=== PATIENT | female | born 1970 | race Caucasian/White ===

== ENCOUNTER 2017-02-17 11:39 | Outpatient (CLI) | payer BC, OTHER ==
[2017-02-17] MEDS ORDERED: IOPAMIDOL-300 50 ML VIAL PO ONE (13:19)
[2017-02-17] MEDS ORDERED: IOPAMIDOL-300 100 ML VIAL IVP ONE (13:19)
== END 2017-02-17 11:40 | disposition home or self-care (01) ==
DX: K76.0 Fatty (change of) liver, not elsewhere classified (principal); Z90.49 Acquired absence of other specified parts of digestive tract
CPT/HCPCS: 74177; Q9967

== ENCOUNTER 2017-02-19 16:43 | Outpatient (CLI) | payer BC, OTHER | END 2017-02-19 16:44 | disposition home or self-care (01) | DX: R10.9 Unspecified abdominal pain (principal) ==

== ENCOUNTER 2017-03-24 15:12 | Outpatient (CLI) | payer BC, OTHER | END 2017-03-24 15:13 | disposition home or self-care (01) | DX: G47.33 Obstructive sleep apnea (adult) (pediatric) (principal) ==

== ENCOUNTER 2017-04-22 17:08 | Outpatient (CLI) | payer BC, OTHER | END 2017-04-22 17:09 | disposition home or self-care (01) | LOC: LAB.R 17:08 | PROVIDERS: ATTEND Physician Assistant Medical | DX: K61.1 Rectal abscess (principal) | CPT/HCPCS: 87070; 87205 ==

== ENCOUNTER 2017-05-21 15:58 | Outpatient (CLI) | payer BC, OTHER | END 2017-05-21 15:59 | disposition home or self-care (01) | LOC: SC 15:58 | PROVIDERS: ATTEND Nurse Practitioner Family | DX: G47.33 Obstructive sleep apnea (adult) (pediatric) (principal); G47.23 Circadian rhythm sleep disorder, irregular sleep wake type | CPT/HCPCS: 99212; 99214 ==

== ENCOUNTER 2017-05-26 14:45 | Outpatient (CLI) | payer BC, OTHER ==
--- NOTE | 2017-05-28 16:44 | Mammography Report ---
DIGITAL SCREENING MAMMOGRAM: 05/26/2017 CLINICAL INDICATION: A 46-year-old, for screening. COMPARISON: 01/2015, 05/2013, 12/2011, 11/2010, 05/2010. TECHNIQUE: Routine CC and MLO projections were obtained of the breasts. FINDINGS: Scattered fibroglandular tissue is present within the breasts. There are no dominant subha s, suspicious microcalcifications, or secondary signs of malignancy. In comparison to the previous st udies, there are no significant changes. ASSESSMENT: NO MAMMOGRAPHIC EVIDENCE OF MALIGNANCY. NO SIGNIFICANT INTERVAL CHANGES. RECOMMENDATION: Screening mammography is recommended annually. BIRADS category 1 - negative. STANDARD QUALIFYING STATEMENTS 1. This examination was reviewed with the aid of Computed-Aided Detection (CAD). 2. A negative or benign imaging report should not delay biopsy if clinically suspicious findings are present. Consider surgical consultation if warranted. More than 5% of cancers are not identified by i maging. 3. Dense breasts may obscure an underlying neoplasm. JOB #: [id number] EXT JOB #:[id number]
== END 2017-05-26 14:46 | disposition home or self-care (01) ==
LOC: DI 14:45
PROVIDERS: ATTEND Physician Assistant Medical
DX: Z12.31 Encounter for screening mammogram for malignant neoplasm of breast (principal)
CPT/HCPCS: 77067

== ENCOUNTER 2017-06-30 17:50 | Outpatient (CLI) | payer BC, OTHER ==
[2017-07-02 13:47] LABS: TEST RESULT REPORT (())
== END 2017-06-30 17:51 | disposition home or self-care (01) ==
LOC: LAB 17:50
PROVIDERS: ATTEND Physician Assistant Medical
DX: K61.1 Rectal abscess (principal); R21 Rash and other nonspecific skin eruption
CPT/HCPCS: 81599; 87070; 87077; 87205; 87255

== ENCOUNTER 2017-09-09 20:34 | Outpatient (CLI) | payer BC, OTHER | END 2017-09-09 20:35 | disposition home or self-care (01) | LOC: LAB.WCP 20:34 | PROVIDERS: ATTEND Physician Assistant Medical | DX: E55.9 Vitamin D deficiency, unspecified (principal); E03.9 Hypothyroidism, unspecified | CPT/HCPCS: 36415; 82306; 84443 ==

== ENCOUNTER 2018-05-11 16:45 | Outpatient (CLI) | payer BC, OTHER ==
[2018-05-15 05:26] LABS: B. PARAPERTUSSIS DNA NOT DETECTED; B. PERTUSSIS DNA NOT DETECTED; SOURCE SWAB
== END 2018-05-11 16:46 ==
LOC: LAB.R 16:45
PROVIDERS: ATTEND Physician Assistant Medical
DX: J20.9 Acute bronchitis, unspecified (principal)
CPT/HCPCS: 87801

== ENCOUNTER 2018-11-10 09:46 | Outpatient (CLI) | payer BC, OTHER | END 2018-11-10 09:47 | disposition home or self-care (01) | LOC: SC 09:46 | PROVIDERS: ATTEND Internal Medicine Pulmonary Disease | DX: G47.33 Obstructive sleep apnea (adult) (pediatric) (principal) | CPT/HCPCS: 99212; 99213 ==